=== PATIENT | male | born 1970 | race Caucasian/White ===

== ENCOUNTER → 2020-06-01 | Outpatient (CLI) | payer BC ==
--- NOTE | 2020-06-01 17:06 | Diagnostic Imaging Report ---
PROCEDURE: MRI lumbar spine. TECHNIQUE: Multiplanar, multisequence MRI of the lumbar spine was performed without contrast. INDICATION: Low back pain and left leg pain. COMPARISON: No comparison is available. FINDINGS: There is a grade 1 anterolisthesis of L5 on S1 which appears to be secondary to L5 pars defect. There is slight retrolisthesis of L4 on L5. Alignment is otherwise normal. The vertebral body heights are maintained. There are no marrow signal changes present to suggest an acute osseous injury or suspicious marrow replacing lesion. There is multilevel disc degeneration with the most advanced disc space height loss at L5-S1. The distal thoracic cord demonstrates no evidence of signal abnormality or abnormal expansion. The conus terminates at a normal level. Intrathecal nerve root is unremarkable. There are no findings of an abnormal epidural process. There is no significant lower thoracic canal stenosis. L1-L2 demonstrates mild facet hypertrophy and ligamentous thickening. There is no disc bulge or herniation or significant stenosis. L2-L3 demonstrates facet hypertrophy and ligamentous thickening. There is minimal disc bulging. There is no significant stenosis. At L3-L4, there is disc bulge with a small central disc protrusion with annular tear. There is also facet arthropathy. There is mild narrowing of the lateral recesses. There is mild narrowing of the left neural foramen. L4-L5 demonstrates diffuse disc degeneration and disc bulging with a large left inferiorly migrated paracentral disc extrusion resulting in severe narrowing of the left lateral recess and appearing to impinge on the left L5 root. There is minimal narrowing of the right lateral recess. There is no significant canal stenosis. There is xlwuyknr-sa-xwokua bilateral foraminal stenosis. L5-S1 demonstrates endplate spurring, diffuse disc bulging, and advanced facet arthropathy and ligamentous thickening. There is severe narrowing of the central canal and both lateral recesses. There is also severe right and qrmlnxpz-rs-gykeeh left foraminal stenosis. Paraspinal soft tissues are unremarkable. Aorta is normal in caliber. The kidneys appear nonobstructed. IMPRESSION: 1. Anterolisthesis of L5 on S1 secondary to bilateral L5 pars defect. There is a degenerative retrolisthesis of L4 on L5. 2. Multilevel degenerative disc disease and facet arthropathy without acute or suspicious osseous abnormality. 3. Variable degrees of stenosis throughout the lumbar spine are detailed above. Most significant findings are that of a large left paracentral disc herniation with inferior migration at L4-L5 resulting in severe left lateral recess stenosis and likely impingement on the left L5 root. Additionally, degenerative features in anterolisthesis of L5-S1 result in severe central canal stenosis and severe narrowing of both lateral recesses as well as high-grade bilateral L5-S1 foraminal stenosis. Dictated by: Dictated on workstation # [id number]
== END ==
LOC: RAD 15:30
PROVIDERS: ATTEND Physician Assistant
DX: M48.07 Spinal stenosis, lumbosacral region (principal); M51.36 Other intervertebral disc degeneration, lumbar region
CPT/HCPCS: 72148

== ENCOUNTER 2022-09-12 12:49 | Outpatient (CLI) | payer BC ==
[~2022-09-12] VITALS: Ht 190.5 cm; Wt 105.7 kg
[2022-09-12] MEDS ORDERED: DICL75TA2 PO (13:06)
== END 2022-09-12 13:09 | disposition home or self-care (01) ==
LOC: PREOP 12:49
PROVIDERS: ATTEND Surgery
DX: Z01.818 Encounter for other preprocedural examination (principal)

== ENCOUNTER 2022-09-20 12:06 | Day surgery (SDC) | payer BC ==
[~2022-09-20] VITALS: Ht 190.5 cm; Wt 105.7 kg
[~2022-09-20 12:06] MED LIST: DICL75TA2 PO
[2022-09-20] MEDS ORDERED: LACTATED RINGERS 1,000 ML IV STA (12:16)
[2022-09-20 12:25] VITALS: BP 138/86
--- NOTE | 2022-09-20 13:02 | Progress Note-Pre Operative ---
Pre-Operative Progress Note Date of Available H&P: Aug 24, 2022 Date H&P Reviewed: Sep 20, 2022 Time H&P Reviewed: 13:02 History & Physical: H&P Reviewed, Patient Examed, No changes noted Changes from last HP None Pre-Operative Diagnosis: Screening and Family Hx of colon cancer ANDREW COLON DO Sep 20, 2022 13:02
[2022-09-20] MEDS ORDERED: PROPOFOL INJECTION 50 ML IV ONE (13:18)
[2022-09-20] MEDS ORDERED: MIDAZOLAM 2 MG/2 ML (VERSED) VIAL ONE (13:18)
--- NOTE | 2022-09-20 13:43 | Discharge Inst-Simple/Standard ---
Discharge Inst-Standard Reconcile Patient Problems Problems Reviewed?: Yes Patient Instructions/Follow Up Plan of Care/Instructions/FU: Schedule appointment with Dr. Ying in 5 years Activity as Tolerated: Yes Discharge Diet: No Restrictions, Regular Diet ANDREW YING DO Sep 20, 2022 13:43
[2022-09-20 13:48] VITALS: BP 105/73
[2022-09-20 13:53] VITALS: BP 111/76
[2022-09-20 13:55] VITALS: BP 111/77
--- NOTE | 2022-09-20 14:02 | Anesthesia-General Post-Op ---
MAC Patient Condition Mental Status/LOC: Same as Preop Cardiovascular: Satisfactory Nausea/Vomiting: Absent Respiratory: Satisfactory Pain: Controlled Complications: Absent Post Op Complications Complications None Follow Up Care/Instructions Patient Instructions None needed. Anesthesiology Discharge Order Discharge Order Patient is doing well, no complaints, stable vital signs, no apparent adverse anesthesia problems. No complications reported per nursing. VICK RICHARDSON DO Sep 20, 2022 14:02
[2022-09-20 14:15] VITALS: BP 126/80
[2022-09-20 14:26] VITALS: BP 126/80
--- NOTE | 2022-09-21 00:36 | OPERATIVE REPORT ---
DATE OF SERVICE: 09/20/2022 PREOPERATIVE DIAGNOSIS: Family history of colon cancer. POSTOPERATIVE DIAGNOSIS: Normal colon. PROCEDURE: Colonoscopy. SURGEON: Andrew Ying DO DISABILITY COORDINATOR: Per . ESTIMATED BLOOD LOSS: None. COMPLICATIONS: None. INDICATIONS: The patient is a 52-year-old male with family history of colon cancer. He understands risks and benefits of procedure and wishes to proceed. Consent was singed in the chart. DESCRIPTION OF PROCEDURE: The patient was taken to the endoscopy suite, placed in the left lateral recumbent position. Timeout was performed. Digital rectal exam was performed. No polyps, masses or ulcerations. Scope was inserted into the rectum and all the way to cecum with minimal difficulty. Prep was adequate. Scope was then slowly retracted back. No polyps, mass, ulceration of the cecum, ascending, transverse, descending and sigmoid colon. Once in the rectum, the scope was retroflexed. No other pathology. Scope was returned to its normal position and slowly withdrawn completely removed. The patient tolerated the procedure well with no complications, taken to recovery in stable condition. RECOMMENDATIONS: The patient will need a repeat colonoscopy in 5 years. Any issues before that will be reevaluated at that time. 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
== END 2022-09-20 14:26 | disposition home or self-care (01) ==
LOC: ENDO 12:06
PROVIDERS: ATTEND Surgery
DX: Z12.11 Encounter for screening for malignant neoplasm of colon (principal); Z80.0 Family history of malignant neoplasm of digestive organs; Z28.310 Unvaccinated for COVID-19; Z85.46 Personal history of malignant neoplasm of prostate

== ENCOUNTER 2023-06-20 19:22 | Emergency (ER) | payer BC ==
--- NOTE | 2023-06-20 20:32 | ED Lower Extremity ---
General Chief Complaint: Lower Extremity Stated Complaint: TOE INJURY Nursing Triage Note: PT AMB TO [facility] WITH CC OF R BIG TOE INJURY. PT STATES HE DROPPED A BOARD ON HIS TOE ON 06/17. PT CONCERN FOR INFECTION. Source: patient Exam Limitations: no limitations History of Present Illness Date Seen by Provider: Jun 20, 2023 Time Seen by Provider: 20:29 Initial Comments Patient is a 53-year-old male who presents ED with right big toe injury. Patient states Monday a large board fell on his right toe. Patient was wearing shoes. Patient reported immediate pain. Bleeding around the nail. States the pain has improved but concern for redness and swelling around the toe. Did report he did have fungus underneath the right nail prior. Nail appears to be intact however slightly elevated. Normal range of motion. Has be en taking anti-inflammatories. Concern for potential infection Allergies and Home Medications Allergies Coded Allergies: No Known Drug Allergies (Unverified , 09/12/22) Patient Home Medication List Home Medication List Reviewed: Yes Cephalexin (Cephalexin) 500 Mg Tablet, 500 MG PO QID Prescribed by: AISHWARYA GREENFIELD on 06/20/232058 Diclofenac Sodium (Diclofenac Sodium) 75 Mg Tablet.dr, 75 MG PO DAILY, (Reported) Entered as Reported by: ALBERT DIANA on 09/12/22 1306 Review of Systems Constitutional: No chills, No diaphoresis EENTM: No ear pain, No blurred vision Cardiovascular: No chest pain Gastrointestinal: No abdominal pain, No nausea, No vomiting Genitourinary: No decreased output, No discharge Musculoskeletal: No back pain; joint pain, joint swelling, muscle pain Skin: No change in color All Other Systems Reviewed Negative Unless Noted: Yes Past Ijxcsiz-Kzdicy-Wqgkno Hx Patient Social History Tobacco Use?: No Substance use?: No Alcohol Use?: Yes Alcohol Frequency: Once in a while Pt feels they are or have been: No Immunizations Up To Date First/Initial COVID19 Vaccinat: NO Second COVID19 Vaccination Mariano: NO Third COVID19 Vaccination Date: NO Seasonal Allergies Seasonal Allergies: No Past Medical History Surgeries: Yes (back sx x2, TURP) Respiratory: No Cardiac: No Neurological: No Genitourinary: No Gastrointestinal: No Musculoskeletal: Yes Arthritis, Chronic Back Pain Endocrine: No HEENT: No Cancer: No Psychosocial: No Integumentary: No Blood Disorders: No Family Medical History Colon cancer Physical Exam Vital Signs Vital Signs - First Documented 06/20/23 19:29 Temp 36.6 Pulse 85 Resp 18 B/P (MAP) 164/87 (112) Pulse Ox 96 O2 Delivery Room Air Capillary Refill : Less Than 3 Seconds Height, Weight, BMI Height: '" Weight: lbs. oz. kg; 29.12 BMI Method: General Appearance: WD/WN, no apparent distress HEENT: PERRL/EOMI, normal ENT inspection, TMs normal, pharynx normal Neck: non-tender, full range of motion, supple Cardiovascular: regular rate, rhythm, no edema, no gallop, no JVD Respiratory: chest non-tender, lungs clear, normal breath sounds, no respiratory distress, no accessory muscle use Gastrointestinal: normal bowel sounds, non tender, soft Back: normal inspection, no CVA tenderness Knees: bilateral knee non-tender, bilateral knee normal inspection, bilateral knee normal range of motion Ankles: bilateral ankle non-tender, bilateral ankle normal inspection, bilateral ankle normal range of motion Feet: right foot other (Bruising around the right nail slightly elevated. No significant tenderness. Localized erythema. Mild tenderness proximal right big toe nail. 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, no motor/sensory deficits, alert, normal mood/affect, oriented x 3 Lymphatic: no adenopathy Progress/Results/Core Measures Results/Orders My Orders Orders - JAMIE ROSA Foot, Right, 3 View (06/20/23 20:05) Cefazolin Injection (Cefazolin Injecti (06/20/23 21:00) Water (Sterile) For Injection (Sterile W (06/20/23 21:12) Medications Given in ED Current Medications Medications Dose Ordered Sig/Fariha Route Start Time Stop Time Status Last Admin Dose Admin Cefazolin Sodium 1,000 mg ONCE ONCE IM 06/20/23 21:00 06/20/23 21:01 DC 06/20/23 21:16 1,000 MG Sterile Water 10 ml @ ud STK-MED ONCE .ROUTE 06/20/23 21:12 06/20/23 21:15 DC 06/20/23 21:17 2.5 MLS/HR Vital Signs/I&O 06/20/23 06/20/23 19:29 21:34 Temp 36.6 Pulse 85 85 Resp 18 18 B/P (MAP) 164/87 (112) 164/87 Pulse Ox 96 96 O2 Delivery Room Air Room Air Blood Pressure Mean: 112 Departure Communication (PCP) Differential diagnosis, toe fracture, toe infection. patient is a 53-year-old male presents ED with injury to his right big toe. This occurred on Monday. A board fell on his right foot. Patient does have right big toenail that is slightly elevated likely from blood. Concern for right great toe injury. Blood noted around the nail and underneath. Does have some localized erythema and swelling. X-ray was ordered which did note Acute comminuted tuft fracture of the right great toe. Soft tissue swelling may be related to trauma or infection. Concern for potential underlying infection with the localized erythema. Did receive a dose of Ancef IM here. Made a small puncture around the nail and underneath the nail with 18 gauge needle and drained moderate mount of old blood. Improvement of the nail to the nail bed. Nail does appear loose and he may eventually lose the nail. Tape was applied. Will discharge with Keflex as there may be a secondary infection versus from the trauma. Provided orthopedic follow-up 2 to 3 days for reevaluation. If increased redness or swelling to return back to ED. Sheryl tape. Postop shoe or padding footwear. Bear Weight as tolerated. Anti-inflammatories for pain. Impression Primary Impression: Fractured great toe Disposition: HOME, SELF-CARE Condition: Stable Departure-Patient Inst. Decision time for Depature: 20:58 Referrals: BENJI ALVARADO DO (PCP/Family) Primary Care Physician NADIA ESTRADA MD Patient Instructions: Toe Fracture ED Add. Discharge Instructions: Recommend sheryl tape, topical Neosporin twice a day keep the toe covered. Continue allow drainage. If increased redness or swelling to return back to ED. Recommend recheck with x-ray and 10 to 14 days. All discharge instructions reviewed with patient and/or family. Voiced understanding. Scripts Cephalexin (Cephalexin) 500 Mg Tablet 500 MG PO QID for 7 Days, #28 TAB Prov: JAMIE ROSA 06/20/23 JAMIE ROSA Jun 20, 2023 20:32
--- NOTE | 2023-06-20 20:43 | Diagnostic Imaging Report ---
EXAMINATION: Right foot 3 views HISTORY: big toe pain COMPARISON: None available. FINDINGS: Acute comminuted tuft fracture of the right great toe. Associated cyst soft tissue swelling. The joint spaces are normal. No unexpected radiopaque foreign body. IMPRESSION: Acute comminuted tuft fracture of the right great toe. Soft tissue swelling may be related to trauma or infection. Dictated by: Dictated on workstation # [id number]
[2023-06-20] MEDS ORDERED: CEPH500T PO (20:59)
[2023-06-20] MEDS ORDERED: ceFAZolin 1,000 MG VIAL IM ONE (21:00)
[2023-06-20] MEDS ORDERED: WATER (STERILE) FOR INJECTION 10 ML ONE (21:12)
[2023-06-20 21:34] VITALS: BP 164/87
== END 2023-06-20 21:34 | disposition home or self-care (01) ==
LOC: EDUNIT# 19:22 → ER 19:25
DX: S92.491A Other fracture of right great toe, initial encounter for closed fracture (principal); Z28.310 Unvaccinated for COVID-19; W20.8XXA Other cause of strike by thrown, projected or falling object, initial encounter
CPT/HCPCS: 73630